=== PATIENT | female | born 1945 | race Caucasian/White ===

== ENCOUNTER 2017-10-02 19:10 | Inpatient (IN) | payer MEDICAID, MEDICARE ==
[~2017-10-02] VITALS: Ht 154.9 cm; Wt 63.5 kg
[~2017-10-02 19:10] MED LIST: DIGO125T PO; FURO40TA5 PO; HYDR-3326 PO; METO25TA6 PO; POTA10CA43 PO; WARF3TAB29 PO; WARF4TAB72 PO
--- NOTE | 2017-10-02 19:21 | NUR ---
Dr. John NIX MD at bedside for MSE.
[2017-10-02] MEDS ORDERED: IV NORMAL SALINE 1000 ML BAG IV ONE (19:30)
[2017-10-02] MEDS ORDERED: ONDANSETRON 4 MG/2 ML VIAL IV ONE (19:30)
[2017-10-02] MEDS ORDERED: ONDANSETRON 4 MG/2 ML VIAL ONE (19:43)
--- NOTE | 2017-10-02 19:45 | NUR ---
Pt went down to radiology dept for CT scan + xray. No acute distress noted.
[2017-10-02 19:47] LABS: BASOPHILS % (AUTO) 0.1 % (0.0-2.0); EOSINOPHILS # (AUTO) 0.1 K/uL (0.0-0.7); EOSINOPHILS % (AUTO) 0.4 % (0.0-7.0); HEMOGLOBIN 14.2 g/dL (10.9-14.3); LYMPHOCYTES # (AUTO) 0.5 K/uL (20.0-40.0); LYMPHOCYTES % (AUTO) 3.5 % (20.5-51.5); MEAN CORPUSCULAR HEMOGLOBIN 29.5 uug (24.7-32.8); MEAN CORPUSCULAR HGB CONC 33 g/dL (32.3-35.6); MEAN CORPUSCULAR VOLUME 89.3 fL (75.5-95.3); MONOCYTES # (AUTO) 0.9 K/uL (2.0-10.0); MONOCYTES % (AUTO) 6.5 % (0.0-11.0); NEUTROPHILS # (AUTO) 11.7 K/uL (1.8-8.9); NEUTROPHILS % (AUTO) 89.5 % (38.5-71.5); PLATELET COUNT (AUTO) 126 K/uL (179-408); RED BLOOD CELL COUNT(AUTO) 4.82 MIL/uL (3.63-4.92); WHITE BLOOD COUNT (AUTO) 13.1 K/uL (3.8-11.8)
[2017-10-02 20:05] LABS: CARBON DIOXIDE 27 mmol/L (21-32); CHLORIDE 101 mmol/L (98-107); CREATININE 0.6 mg/dL (0.6-1.3); GLUCOSE 125 mg/dL (74-106); POTASSIUM 3.6 mmol/L (3.5-5.1); UREA NITROGEN, BLOOD 18 mg/dL (7-18)
[2017-10-02 20:09] LABS: *BILIRUBIN,URIN NEGATIVE (NEGATIVE); *BLOOD, URINE 2+ (NEGATIVE); *CLARITY,URINE CLEAR (CLEAR); *COLOR,URINE YELLOW (YELLOW); *KETONES,URINE NEGATIVE (NEGATIVE); *PROTEIN,URINE NEGATIVE (NEGATIVE); *UROBILINOGEN,URINE 0.2 E.U./dl (NORMAL); LEUKOCYTE ESTERASE ,URINE NEGATIVE (NEGATIVE); NITRITE, URINE NEGATIVE (NEGATIVE); PH,URINE 5.5 (5.0-8.0); UGLUCOSE NEGATIVE (NEGATIVE)
[2017-10-02 20:11] LABS: ALANINE AMINOTRANSFERASE 27 U/L (14-59); ALKALINE PHOSPHATASE 85 U/L (50-136); ASPARTATE AMINOTRANSFERASE 38 U/L (15-37); BILIRUBIN,DIRECT 0.3 mg/dL (0.0-0.2); BILIRUBIN,TOTAL 1.1 mg/dL (0.2-1.0); LIPASE 116 U/L (73-393); TOTAL PROTEIN, SERUM 7.5 g/dL (6.4-8.2)
[2017-10-02 20:15] LABS: BACTERIA,URINE RARE /HPF (NONE SEEN); SQUAMOUS EPITHELIAL CELL,UR FEW /HPF (NONE SEEN); WBC,URINE 0-3 /HPF (0-3)
[2017-10-02] MEDS ORDERED: MAGN400C PO (21:08)
[2017-10-02] MEDS ORDERED: WARF1TAB47 PO (21:08)
[2017-10-02 21:40] VITALS: BP 118/32
--- NOTE | 2017-10-02 21:44 | NUR ---
Pt. admitted to Tele , under care of Ray DRY CLEANER HAND Diagnosis: Gastroenteritis/dehydration Belongs List completed. NAD noted. report given to Radha GUADARRAMA
[2017-10-02] MEDS ORDERED: ACETAMINOPHEN 325 MG TABLET PO PRN (22:00)
[2017-10-02] MEDS ORDERED: ONDANSETRON 4 MG/2 ML VIAL IV PRN (22:00)
[2017-10-02] MEDS ORDERED: MAGNESIUM HYDROXIDE 30 ML LIQUID UDC PO PRN (22:00)
[2017-10-02] MEDS ORDERED: Z GUARD REMEDY PASTE 57 GM TUBE TOP PRN (22:00)
[2017-10-02] MEDS ORDERED: HYDROCODONE/APAP 5-325MG TABLET PO PRN (22:00)
[2017-10-02] MEDS ORDERED: ZOLPIDEM 5 MG TABLET PO PRN (22:00)
--- NOTE | 2017-10-02 22:10 | NUR ---
In from ER via eryndamian, 72 y/o female, awake & alert no SOB denies chest pain, Dx. Dehydration, Gastroenteritis. Placed on Telemetry- Afib with BBB on the monitor. Patient denies N/V at this time. Skin warm to touch, Febrile T= 102.2 F patient denies any pain. Paged Epic-MD on-call. Orders received, STAT blood culture was ordered. Admission assessment initiated. On clear liquid diet, ice chips provided.
[2017-10-02] MEDS: IV NS 1000 ML 1,000 ML IV SCH (22:32)
--- NOTE | 2017-10-02 22:49 | NUR ---
Cooling measures applied, Tylenol 650 mg po given.
[2017-10-02 23:40] VITALS: BP 104/44
[2017-10-03 03:43] VITALS: BP 96/50
[2017-10-03 06:11] LABS: BASOPHILS % (AUTO) 0.2 % (0.0-2.0); EOSINOPHILS # (AUTO) 0.1 K/uL (0.0-0.7); EOSINOPHILS % (AUTO) 1.5 % (0.0-7.0); HEMOGLOBIN 12.1 g/dL (10.9-14.3); LYMPHOCYTES % (AUTO) 17.6 % (20.5-51.5); MEAN CORPUSCULAR HEMOGLOBIN 30.2 uug (24.7-32.8); MEAN CORPUSCULAR HGB CONC 34 g/dL (32.3-35.6); MEAN CORPUSCULAR VOLUME 89.5 fL (75.5-95.3); MONOCYTES # (AUTO) 0.5 K/uL (2.0-10.0); NEUTROPHILS % (AUTO) 71.7 % (38.5-71.5); PLATELET COUNT (AUTO) 100 K/uL (179-408); RED BLOOD CELL COUNT(AUTO) 4.02 MIL/uL (3.63-4.92); WHITE BLOOD COUNT (AUTO) 5.5 K/uL (3.8-11.8)
[2017-10-03 06:33] LABS: ALANINE AMINOTRANSFERASE 21 U/L (14-59); ALKALINE PHOSPHATASE 64 U/L (50-136); ASPARTATE AMINOTRANSFERASE 27 U/L (15-37); BILIRUBIN,DIRECT 0.2 mg/dL (0.0-0.2); BILIRUBIN,TOTAL 0.9 mg/dL (0.2-1.0); CARBON DIOXIDE 31 mmol/L (21-32); CHLORIDE 104 mmol/L (98-107); CHOLESTEROL 158 mg/dL (<200); CREATININE 0.6 mg/dL (0.6-1.3); GLUCOSE 88 mg/dL (74-106); HDL CHOLESTEROL 57 mg/dL (40-60); MAGNESIUM 1.8 mg/dL (1.8-2.4); PHOSPHOROUS 3.8 mg/dL (2.5-4.9); POTASSIUM 3.6 mmol/L (3.5-5.1); TOTAL PROTEIN, SERUM 5.8 g/dL (6.4-8.2); TRIGLYCERIDES 60 MG/DL (30-150); UREA NITROGEN, BLOOD 18 mg/dL (7-18)
[2017-10-03 06:55] LABS: DIGOXIN 0.3 ng/mL (0.9-2.0)
--- NOTE | 2017-10-03 07:03 | NUR ---
Afebrile at this time, no acute distress. A-fib/ pacing on the monitor.
--- NOTE | 2017-10-03 08:00 | NUR ---
Pt is A and O times 4, able to verbalize needs. No pain at this time. Pt tolerated clear liquid diet well. Will upgrade diet according to MENTAL HEALTH PROGRAM MANAGER Abdoulaye.
[2017-10-03] MEDS: PANTOPRAZOLE SODIUM 40 MG VIAL IV SCH (08:57)
[2017-10-03] MEDS: DIGOXIN 125 MCG TABLET PO SCH (08:58)
[2017-10-03] MEDS: POTASSIUM CHLORIDE 10 MEQ TAB.PRT.SR PO SCH (08:59)
[2017-10-03] MEDS: METOPROLOL TARTRATE 25 MG TABLET PO SCH ×2 (08:59→16:52)
[2017-10-03] MEDS ORDERED: FUROSEMIDE 40 MG TABLET PO SCH (09:00)
[2017-10-03 11:20] VITALS: BP 113/37
[2017-10-03] MEDS: IV NS 1000 ML 1,000 ML IV SCH (11:35)
[2017-10-03] MEDS: CALCIUM CARBONATE 500 MG TABLET PO SCH (12:38)
--- NOTE | 2017-10-03 13:00 | NUR ---
Pt tolerated cardiac diet well, no s/s of N/V
[2017-10-03 15:14] VITALS: BP 96/48
--- NOTE | 2017-10-03 16:14 | NUR ---
Pt is noted to be walking around the unit. Able to ambulate in a steady pace. No immediate s/s of pain or distress
[2017-10-03] MEDS ORDERED: WARFARIN SODIUM 3 MG TABLET PO SCH (17:00)
--- NOTE | 2017-10-03 17:34 | NUR ---
EXCHANGE UNDERWRITING CONSULTANT aware of pt having diastolic BP in the 30's, with new orders plant controller consult and 500 bolus of NS
[2017-10-03] MEDS ORDERED: IV NORMAL SALINE 500 ML BAG IV ONE (17:45)
[2017-10-03] MEDS ORDERED: IV NORMAL SALINE 500 ML IV ONE (18:30)
--- NOTE | 2017-10-03 18:53 | NUR ---
Bolus 500ml NS carried out, noted a second bolus ordered by Dr. Dodge. Called pharmacy to verify just ONE bolus and not two. Pt is A&O times 4. Pt states no pain at this time. Educated the pt that when taking BP medications at home she needs to take her BP. Pt stated that no one has educated her on that. Pt is able to verbalized needs, pt is ambulatory and continent both B&B
[2017-10-03 19:00] VITALS: BP 117/49
--- NOTE | 2017-10-03 19:20 | NUR ---
Received pt lying in bed. AAOX4. Denies any pain at this time. In no acute distress. A. fib on tele at 84/min. with BBB and occasionally pacing. IV site on left hand intact and patent. IVF bolus infusing. Current BP 117/49. Afebrile. Safety measure initiated and call rizo within reach.
[2017-10-04] VITALS: BP 138/66
[2017-10-04] MEDS: IV NS 1000 ML 1,000 ML IV SCH ×2 (02:37→14:00)
[2017-10-04 04:00] VITALS: BP 123/65
--- NOTE | 2017-10-04 06:05 | NUR ---
AAOX4. In no acute distress. A. fib on tele at 86/min. with BBB and occasionally pacing. IV site on left hand intact and patent. IVF infusing. Used O2 at 2lpm via NC PRN. O2 sat at 93% on RA. Safety measure maintained and call rizo within reach.
--- NOTE | 2017-10-04 07:27 | NUR ---
Received pt in bed sleeping, easily arousable to name. Pt is able to verbalize needs. No pain stated at this time. No s/s of SOB, pain, distress or discomfort
[2017-10-04] MEDS: METOPROLOL TARTRATE 25 MG TABLET PO SCH (08:48)
[2017-10-04] MEDS: DIGOXIN 125 MCG TABLET PO SCH (08:48)
[2017-10-04] MEDS: CALCIUM CARBONATE 500 MG TABLET PO SCH (08:48)
[2017-10-04] MEDS: PANTOPRAZOLE SODIUM 40 MG VIAL IV SCH (08:48)
[2017-10-04] MEDS: POTASSIUM CHLORIDE 10 MEQ TAB.PRT.SR PO SCH (08:48)
--- NOTE | 2017-10-04 10:37 | NUR ---
Pt has discharge orders from Abdoulaye MITCHELL. Pt is aware.
[2017-10-04 11:32] VITALS: BP_SYST 134; BP_SYST 98; BP_DIAS 56; BP_DIAS 58
--- NOTE | 2017-10-04 14:20 | NUR ---
Pt was discharged home in stable condition with ONLINE EDUCATION MANAGER orders and umbrella repairer clearance. Discharge papers signed by the pt, [employer] accounted for personal belongings list. IV and ID band removed. Pt able to dress herself. Education given to continue home meds, follow up with PCP and umbrella repairer appointment. Pt stated her umbrella repairer doctors are located at [facility]. Education to take her BP before taking BP meds given. Pt is alert and oriented times 4. Pt was guided down to lobby in a wheelchair where her bother picked her up.
[2017-10-05] MEDS ORDERED: CALCIUM CARBONATE 500 MG TABLET PO SCH (09:00)
== END 2017-10-04 14:30 | disposition home or self-care (01) | DRG 249 ==
LOC: ER 19:11 → TELE 21:23
PROVIDERS: ADMIT Nurse Practitioner Acute Care; ATTEND Nurse Practitioner Acute Care
DX: E86.0 Dehydration (principal); A08.4 Viral intestinal infection, unspecified; I48.2 Chronic atrial fibrillation; D68.59 Other primary thrombophilia; E83.51 Hypocalcemia; I11.9 Hypertensive heart disease without heart failure; K74.60 Unspecified cirrhosis of liver; D27.1 Benign neoplasm of left ovary; K80.20 Calculus of gallbladder without cholecystitis without obstruction; I25.10 Atherosclerotic heart disease of native coronary artery without angina pectoris; Z82.49 Family history of ischemic heart disease and other diseases of the circulatory system; Z95.2 Presence of prosthetic heart valve; Z95.0 Presence of cardiac pacemaker; Z95.1 Presence of aortocoronary bypass graft; Z79.01 Long term (current) use of anticoagulants; Z79.899 Other long term (current) drug therapy; Z83.3 Family history of diabetes mellitus; N20.0 Calculus of kidney
CPT/HCPCS: 36415; 70030-TC; 71045; 83690; 83735; 84100; 85025; 85610; 85730; 87040; 87086; 93005; 93307; A4663; C9113; J2405; J7030; J7040